=== PATIENT | male | born 1995 | race Asian ===

== ENCOUNTER 2017-07-09 08:45 | Emergency (ER) | payer OTHER ==
[2017-07-09 08:50] VITALS: RESP 18
[2017-07-09] MEDS ORDERED: ONDANSETRON 4 MG/2 ML VIAL ONE (09:06)
[2017-07-09] MEDS ORDERED: NS 1,000 ML IV ONE (09:07)
[2017-07-09] MEDS ORDERED: ONDANSETRON 4 MG/2 ML VIAL IVP ONE (09:07)
[2017-07-09 09:12] LABS: PLATELET COUNT 191 10^3/uL (150-400)
--- NOTE | 2017-07-09 09:15 | EDPHY ---
General Narrative: CHIEF COMPLAINT: Abdominal pain, vomiting HISTORY OF PRESENT ILLNESS: Patient presents with complaints of vomiting and abdominal pain. He woke at 3: 00 a.m. this morning with lower abdominal pain. This was both lower quadrant. Unable to describe the type of pain. It has been constant. Moderate to severe with movement palpation. He has vomited several times since then. No bloody emesis. No constipation or diarrhea. No urinary complaints. No trauma. No previous surgery in the abdomen. He contact his family who told him to take a medication that he had at home. He also went to [facility] at . They performed an exam and sent him to our facility for higher level of care. No other associated complaints or modifying factors. REVIEW OF SYSTEMS: Ten systems reviewed and are negative unless otherwise noted in the HPI PCP: [facility] at SPECIALISTS: None PAST MEDICAL HISTORY: Uncomplicated PAST SURGICAL HISTORY: No surgical history SOCIAL HISTORY: Nonsmoker. Occasional alcohol. No drug use. 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 Airway widely patent. Neck: Normal inspection, supple, non-tender Respiratory: Lungs are clear to auscultation. No wheeze, rhonchi or crackles Cardiovascular: Regular rate and rhythm. No murmur Gastrointestinal: Abdomen is soft and nondistended. Tenderness to the left lower quadrant and suprapubic region. No right lower quadrant tenderness. Negative Rovsing. No tympany rigidity. No guarding. No CVA tenderness. Back: non-tender, no bony abnormalities Neurological: A&O, nonfocal, strength is symmetric in all 4 limbs. Skin: Warm and dry, no rash no petechiae or purpura Extremities: Nontender, no pedal edema Psychiatric: Mood and affect normal DIFFERENTIAL DIAGNOSES: Including but not limited to enteritis, mesenteric adenitis, renal colic, colitis, diverticulitis, appendicitis MDM: 9:15 a.m. Abdominal pain with vomiting since 3:00 a.m. this morning. No bloody emesis. No trauma or injury. No diarrhea abdominal exam is nonacute with pain left lower quadrant. Nonacute abdomen. Vital signs stable vomiting prior to my arrival and he has received Zofran and has IV fluid infusing. Laboratory studies are pending. I do not feel that he is in need of an emergent CT scan at this time. He is resting comfortably in no acute distress. 9:35 a.m. CBC reveals mild leukocytosis without a shift. Chemistry reveals isolated, mild hyperbilirubinemia. LFTs otherwise normal. Urinalysis pending. 10:00 a.m. The urinalysis reveals 1+ blood and ketones. Patient re-examine. His pain is on the right side and and he does now have some mild left flank pain. His pain is mild and his abdominal exam remains benign. Do not feel he warrants a CT scan at this time for likely ureteral stone. I discussed with Dr. Fyo, and he is in agreement with this. Patient has not vomited since arrival. His pain is tolerable. We discussed discharge home with pain medication, short course of Flomax, nausea medicine as needed. We discussed outpatient follow-up with Urology. We discussed strict ED precautions for worsening flank pain, worsening abdominal pain, vomiting, fever, difficulty urinating. He will be discharged home with urine strainer and medications as above. I have answered all his questions and he is discharged home stable condition. SUPERVISION: Patient was independently examined, but I discussed the case with my secondary supervising physician Dr. Foy - History Smoking Status: Never smoked - Objective Vital Signs: Initial Vital Signs Temperature (C) 98.6 F 07/09/17 08:47 Heart Rate 73 07/09/17 08:47 Respiratory Rate 18 07/09/17 08:47 Blood Pressure 112/82 H 07/09/17 08:47 O2 Sat (%) 97 07/09/17 08:47 O2 Delivery Mode Room Air Allergies/Adverse Reactions: No Known Allergies Allergy (Unverified 07/09/17 08:47) Home Medications: Medication Instructions Recorded Promethazine HCl [Phenergan 25mg 25 mg PO Q8 PRN #12 tab 07/09/17 (*)] Tamsulosin HCl [Flomax 0.4 MG (*)] 0.4 mg PO DAILY #2 cap 07/09/17 oxyCODONE HCL/ACETAMINOPHEN 1 each PO Q4-6PRN PRN #11 tablet 07/09/17 [Percocet 5-325 mg Tablet] Laboratory Results: Laboratory Results 07/09/17 09:00 07/09/17 09:00 07/09/17 07/09/17 07/09/17 09:40 09:00 09:00 WBC 13.38 10^3/uL H 10^3/uL (3.80-9.50) RBC 4.64 10^6/uL 10^6/uL (4.40-6.38) Hgb 14.5 g/dL g/dL (13.7-17.5) Hct 42.0 % % (40.0-51.0) MCV 90.5 fL fL (81.5-99.8) MCH 31.3 pg pg (27.9-34.1) MCHC 34.5 g/dL g/dL (32.4-36.7) RDW 12.1 % % (11.5-15.2) Plt Count 191 10^3/uL 10^3/uL (150-400) MPV 9.0 fL fL (8.7-11.7) Neut % (Auto) 81.8 % H % (39.3-74.2) Lymph % (Auto) 10.8 % L % (15.0-45.0) Leslie % (Auto) 6.6 % % (4.5-13.0) Eos % (Auto) 0.3 % L % (0.6-7.6) Baso % (Auto) 0.2 % L % (0.3-1.7) Nucleat RBC Rel Count 0.0 % % (0.0-0.2) Absolute Neuts (auto) 10.95 10^3/uL H 10^3/uL (1.70-6.50) Absolute Lymphs (auto) 1.44 10^3/uL 10^3/uL (1.00-3.00) Absolute Monos (auto) 0.88 10^3/uL H 10^3/uL (0.30-0.80) Absolute Eos (auto) 0.04 10^3/uL 10^3/uL (0.03-0.40) Absolute Basos (auto) 0.03 10^3/uL 10^3/uL (0.02-0.10) Absolute Nucleated RBC 0.00 10^3/uL 10^3/uL (0-0.01) Immature Gran % 0.3 % % (0.0-1.1) Immature Gran # 0.04 10^3/uL 10^3/uL (0.00-0.10) Sodium 143 mEq/L mEq/L (135-145) Potassium 3.7 mEq/L mEq/L (3.5-5.2) Chloride 103 mEq/L mEq/L (97-110) Carbon Dioxide 23 mEq/l mEq/l (22-31) Anion Gap 17 mEq/L H mEq/L (8-16) BUN 11 mg/dL mg/dL (7-23) Creatinine 0.7 mg/dL mg/dL (0.7-1.3) Estimated GFR > 60 Glucose 124 mg/dL H mg/dL (70-100) Calcium 9.5 mg/dL mg/dL (8.5-10.4) Total Bilirubin 2.1 mg/dL H mg/dL (0.1-1.4) Conjugated Bilirubin 0.4 mg/dL mg/dL (0.0-0.5) Unconjugated Bilirubin 1.7 mg/dL H mg/dL (0.0-1.1) AST 22 IU/L IU/L (17-59) ALT 34 IU/L IU/L (21-72) Alkaline Phosphatase 72 IU/L IU/L (38-126) Total Protein 7.5 g/dL g/dL (6.3-8.2) Albumin 4.7 g/dL g/dL (3.5-5.0) Lipase 47 IU/L IU/L (23-300) Urine Color YELLOW Urine Appearance CLEAR Urine pH 7.0 (5.0-7.5) Ur Specific [place] 1.026 (1.002-1.030) Urine Protein NEGATIVE (NEGATIVE) Urine Ketones 1+ H (NEGATIVE) Urine Blood 1+ H (NEGATIVE) Urine Nitrate NEGATIVE (NEGATIVE) Urine Bilirubin NEGATIVE (NEGATIVE) Urine Urobilinogen NEGATIVE EU EU (0.2-1.0) Ur Leukocyte Esterase NEGATIVE (NEGATIVE) Urine RBC 1-3 /hpf /hpf (0-3) Urine WBC 1-3 /hpf /hpf (0-3) Ur Epithelial Cells TRACE /lpf /lpf (NONE-1+) Urine Mucus 2+ /lpf H /lpf (NONE-1+) Urine Glucose NEGATIVE (NEGATIVE) Medications Given: Discontinued Medications Sodium Chloride (Ns) 1,000 mls @ 0 mls/hr IV EDNOW ONE; Wide Open PRN Reason: Protocol Stop: 07/09/17 09:08 Last Admin: 07/09/17 09:09 Dose: 1,000 mls Ketorolac Tromethamine (Toradol) 30 mg IVP EDNOW ONE Stop: 07/09/17 09:58 Last Admin: 07/09/17 10:02 Dose: 30 mg Ondansetron HCl (Zofran) 4 mg IVP EDNOW ONE Stop: 07/09/17 09:08 Last Admin: 07/09/17 09:09 Dose: 4 mg Oxycodone/Acetaminophen (Percocet 5/325) 2 tab PO EDNOW ONE Stop: 07/09/17 09:58 Last Admin: 07/09/17 10:02 Dose: 2 tab Departure - Departure Disposition: Home, Routine, Self-Care Clinical Impression: Abdominal pain, left lower quadrant, Microscopic hematuria Condition: Good Instructions: Acute Abdominal Pain (ED), Ureteral Stones (ED) Additional Instructions: 1. Medications as prescribed 2. Contact the on-call urologist Dr. Bhardwaj as provided 3. Follow up on campus with [facility] at as needed 4. Strict ED precautions for worsening abdominal pain, worsening flank pain, vomiting, fever or difficulty urinating Referrals: Gregory Bhardwaj MD [Medical Doctor] - As per Instructions [facility],. [Clinic] - As per Instructions Stand Alone Forms: School Excuse Prescriptions: oxyCODONE HCL/ACETAMINOPHEN [Percocet 5-325 mg Tablet] 1 each PO Q4-6PRN PRN # 11 tablet PRN Reason: Pain, Breakthrough Promethazine HCl [Phenergan 25mg (*)] 25 mg PO Q8 PRN #12 tab PRN Reason: Nausea/Vomiting, Use 1st Tamsulosin HCl [Flomax 0.4 MG (*)] 0.4 mg PO DAILY #2 cap Print Language: Malaysian Monicaarin
[2017-07-09] MEDS ORDERED: OXYCODONE/APAP 5/325 TAB PO ONE (09:57)
[2017-07-09] MEDS ORDERED: KETOROLAC 30 MG/1 ML SDV IVP ONE (09:57)
[2017-07-09 10:19] VITALS: BP 111/75; PULSE 72; TEMP 98.1; O2SAT 96
== END 2017-07-09 10:25 | disposition home or self-care (01) ==
DX: R10.32 Left lower quadrant pain (principal); R31.29 Other microscopic hematuria; E86.9 Volume depletion, unspecified
CPT/HCPCS: 96374; J1885; J2405